=== PATIENT | female | born 1955 | race Caucasian/White ===

== ENCOUNTER 2018-04-02 09:00 | Inpatient (IN) | payer OTHER ==
[2018-04-22] MEDS ORDERED: FAMOTIDINE 20MG TABLET PO ONE (06:00)
[2018-04-22] MEDS ORDERED: CLINDAMYCIN 600MG/50ML PREMIX 600 MG/50 ML BAG IVPB ONE (06:00)
[2018-04-22] MEDS ORDERED: MECLIZINE 25 MG TABLET PO ONE (06:00)
[2018-04-22] MEDS ORDERED: CELECOXIB 100 MG CAPSULE PO ONE (06:00)
[2018-04-22] MEDS ORDERED: METOCLOPRAMIDE 10 MG TABLET PO ONE (06:00)
[2018-04-22] MEDS ORDERED: OXYCODONE HCL/APAP 5MG/325MG TABLET PO PRN (09:23)
[2018-04-22] MEDS ORDERED: METOCLOPRAMIDE HCL 10 MG/2 ML VIAL IVP PRN (09:30)
[2018-04-22] MEDS ORDERED: SENNOSIDES/DOCUSATE SODIUM UD CAPSULE PO PRN (09:30)
[2018-04-22] MEDS ORDERED: ONDANSETRON HCL IV 4 MG/2 ML VIAL IVP PRN (09:30)
[2018-04-22] MEDS ORDERED: HYDROMORPHONE HCL 2 MG/ML VIAL IV PRN (09:30)
[2018-04-22] MEDS ORDERED: DIPHENHYDRAMINE HCL 25 MG CAPSULE PO PRN (09:30)
[2018-04-22] MEDS ORDERED: NALOXONE 0.4 MG/1 ML VIAL IVP PRN (09:30)
[2018-04-22] MEDS ORDERED: AL HYDROX/MAG HYDROX 30ML UD PO PRN (09:30)
[2018-04-22] MEDS ORDERED: MAGNESIUM HYDROXIDE 30 ML UDC PO PRN (09:30)
[2018-04-22] MEDS ORDERED: ZOLPIDEM TARTRATE 5 MG TABLET PO PRN (09:30)
[2018-04-22] MEDS ORDERED: TRAMADOL HCL 50 MG TABLET PO PRN ×2 (09:30)
[2018-04-22] MEDS ORDERED: TRANEXAMIC ACID 1,000 MG in 0.9 % SODIUM CHLORIDE 100ML 100 ML IVPB ONE (11:00)
[2018-04-22] MEDS: RINGERS SOLUTION,LACTATED 1,000 ML IV SCH ×2 (11:14→17:37)
[2018-04-22] MEDS: OXYCODONE HCL/APAP 5MG/325MG TABLET PO PRN ×3 (13:36→21:16)
[2018-04-22] MEDS ORDERED: MIDAZOLAM HCL 2MG/2ML VIAL IV ONE (14:00)
[2018-04-22] MEDS ORDERED: LIDOCAINE 2% MDV (20MG/ML) 20ML VIAL IV ONE (14:00)
[2018-04-22] MEDS ORDERED: PHENYLEPHRINE HCL 10 MG/ML VIAL IVP ONE (14:00)
[2018-04-22] MEDS ORDERED: EPHEDRINE SULFATE 50 MG/ML ML IV ONE (14:00)
[2018-04-22] MEDS ORDERED: GLYCOPYRROLATE 0.2 MG/ML ML IV ONE (14:00)
[2018-04-22] MEDS ORDERED: PROPOFOL 10 MG/ML VIAL IV ONE (14:00)
--- NOTE | 2018-04-22 14:24 | Rehab Evaluation ---
Patient Information - Patient Information Diagnosis: OA R knee s/p R TKA Ordered Treatment: PT Evaluate and Treat Surgery: Yes (R TKA) Date of Surgery: 04/22/18 History: Detail (Pt reports progressive degeneration of R knee.) Past Med/Isha Hx Detail: Detail Past Medical/Surgical Hx: PAST MEDICAL/SURGICAL HISTORY Past Surgical History bilat knee scopes c section PMH - Respiratory Hx Respiratory Disorders No PMH - Cardiovascular Hx Cardiovascular Disorders Yes Hx Hypertension Yes: on meds fair control Exercise Tolerance Good PMH - Neuro Hx Neurological Disorders No PMH - GI Hx Gastrointestinal Disorders Yes Hx Gastroesophageal Reflux Yes: on occassion releived with tums PMH - Hx Genitourinary Disorders No Hx Age of Menopause 57 PMH - Endocrine Hx Endocrine Disorders No PMH - Musculoskeletal Hx Musculoskeletal Disorders Yes Hx Arthritis Yes: right knee PMH - Psych Hx Psychiatric Problems Yes Hx Anxiety Yes PMH - Hematology/Oncology Hx Hematology/Oncology No Disorders Premorbid Status: Detail (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 Independent with all ADLs.) Social History: Detail (Lives with spouse in 2 story home with 4 steps to enter and no hand rails. Pt has walk-in shower with grab bars, elevated toilet, and grab bars around toilet.) Precautions: [place], Fall - Time With Patient Total Time Spent With Patient (Min): 25 Subjective Information - Subjective Information Per Patient (Pt reports minor pain while laying in bed. Pt left supine in bed with needs met, call light within reach, and spouse attending at bedside.) Objective Data - Pain Pain Present: Yes Pain Intensity: 3 Pain Scale Used: Numeric (1 - 10) - Mental Status Patient Orientation: Oriented x3 - Visual Perception Appears within normal limits for therapeutic activities - ROM Not within normal limits (Decreased R knee flexion and extension.) - Strength/Tone Not within normal limits (Decreased R knee strength, grossly 3+/5.) - Coordination Appears within normal limits for therapeutic activities - Bed Mobility Independent (Pt performed sup<>sit transfer independently.) - Transfers Needs Assist (Pt performed sit<>stand transfer using RW and CGA for safety. Pt performed toilet transfer with grab bar on R, and CGA for steadying and safety. Pt given verbal cues for hand placement during transfers.) - Balance Balance Sitting: Good Balance Standing: Good - Sensation Intact - Gait Detail (Pt amb 275' with RW and CGA for safety. Pt amb with step through pattern , decreased stance time on RLE, decreased step length on R, and increased time. Pt required verbal cues and education for RW technique.) - Special Tests No Therapy Assessment - Therapy Assessment Detail (Pt's impairments are consistent with surgical procedure. Pt currently requires assistance with transfers and ambulation. Pt educated on proper RW and transfer techniques, and exercises to complete throughout the day.) Patient Education - Patient Education Teaching Topic: Equipment Use, Exercise/Activity, Precautions Response: Return Demonstration, Verbalize Understanding Teaching Method: Discussion Teaching Recipient: Patient Barriers To Learning: None Problem List - Problem List Physical Therapy Problem List: Detail (Impaired R LE ROM, strength, transfers and ambulation.) Goals - Goals Physical Therapy Goals: 1) Pt will perform sit<>stand transfers with least restrictive assistive device, independent. 2) Pt will ambulate 300' with least restrictive assistive device, independent. 3) Pt will ascend/descend 4 steps with 1 UE support and CGA for safety. Prognosis - Prognosis Good Plan - Plan Physical Therapy Plan: Pt will be seen by PT 1-2 times tomorrow to address current impairments to facilitate safe return home.
[2018-04-22] MEDS: CLINDAMYCIN 600MG/50ML PREMIX 600 MG/50 ML BAG IVPB SCH ×2 (14:28→23:14)
[2018-04-22] MEDS ORDERED: BUPIVACAINE 0.25% W/EPI MPF 30ML VIAL IVP ONE (14:54)
[2018-04-22] MEDS ORDERED: TRANEXAMIC ACID 1,000 MG/10 ML ML IV ONE (14:54)
[2018-04-22] MEDS ORDERED: 0.9 % SODIUM CHLORIDE 100ML BAG IV ONE (14:54)
[2018-04-22] MEDS ORDERED: ROPIVACAINE HCL (NAROPIN) /PF 5MG/ML 20ML VIAL IV ONE (14:56)
[2018-04-22] MEDS ORDERED: DEXAMETHASONE 4 MG/ML 1ML VIAL IVP ONE (14:56)
[2018-04-22] MEDS ORDERED: BUPIVACAINE LIPOSOME 266MG/20ML VIAL IV ONE (14:56)
[2018-04-22] MEDS: CARVEDILOL 12.5 MG TABLET PO SCH (21:16)
[2018-04-22] MEDS: ASPIRIN 325 MG TAB ENTERIC-COATED PO SCH (21:17)
[2018-04-23] MEDS: OXYCODONE HCL/APAP 5MG/325MG TABLET PO PRN ×4 (01:13→10:08)
[2018-04-23] MEDS: RINGERS SOLUTION,LACTATED 1,000 ML IV SCH (02:10)
[2018-04-23 06:34] LABS: HEMATOCRIT 38.9 % (35.0-47.0); HEMOGLOBIN 12.8 gm/dl (11.6-16.0); MEAN CELL VOLUME 89.8 fl (81-97); MEAN CORPUSCULAR HEMOGLOBIN 29.6 pg (27-33); MEAN CORPUSCULAR HGB CONC 32.9 g/dl (32-36); PLATELET COUNT 218 K/uL (130-400); RED BLOOD COUNT 4.33 M/uL (3.80-5.40); RED CELL DISTRIBUTION WIDTH 12.4 % (11.5-14.5)
[2018-04-23] MEDS: CLINDAMYCIN 600MG/50ML PREMIX 600 MG/50 ML BAG IVPB SCH (07:14)
[2018-04-23] MEDS ORDERED: ACETAMINOPHEN 325 MG TAB PO PRN (09:30)
--- NOTE | 2018-04-23 09:33 | Physical Therapy Tx Note ---
Physical Therapy Tx Note - Treatment Note Tolerated: Good Total Time Spent With Patient: 15 Physical Therapy Tx Note: Detail (The patient was in bed when PT arrived and rated her pain as level 3. The patient was independent with supine to and from sit transfer and sit to and from stand transfer. The patient ambulated 45 feet x1 WBAT on the R LE with front wheeled walker. The patient ambulated on stairs with folded walker and railing with supervision/CG for safety using proper technique. The patient's pain was increased following stair climbing and she declined to walk a distance. The patient has met all inpatient PT goals and is discharged from inpatient PT.) Physical Therapy Problem List: Detail (Impaired R LE ROM, strength, transfers and ambulation.) Physical Therapy Goals: 1) Pt will perform sit<>stand transfers with least restrictive assistive device, independent. (Goal met). 2) Pt will ambulate 300 ' with least restrictive assistive device, independent.( Goal met however patient did not ambulate 300feet . Patient is independent with ambulation). 3) Pt will ascend/descend 4 steps with 1 UE support and CGA for safety.(Goal Met) Physical Therapy Plan: Pt is independent with all mobility and has met her inpatient PT goals. Pt. is to continue with outpatient PT.
--- NOTE | 2018-04-23 09:44 | Operative Note ---
DATE OF SURGERY: 04/22/2018 Surgeon: Dionte Schwarz DO PREOPERATIVE DIAGNOSIS: Primary osteoarthritis of the right knee. POSTOPERATIVE DIAGNOSIS: Primary osteoarthritis of the right knee. OPERATION: Right total knee arthroplasty. DESCRIPTION OF PROCEDURE: This 63-year-old female was taken to the operating room and placed in the supine position on the operating room table. Spinal anesthesia was induced by the department of anesthesia. The right lower extremity was elevated. It was prepped with Hibiclens and draped in the usual sterile fashion. It was exsanguinated and the tourniquet inflated to 300 mmHg. All scrub personnel wore personal isolation suits. An anterior longitudinal midline incision was made followed by a medial parapatellar arthrotomy incision. An intracondylar drill hole was made for the intramedullary alignment jessica. The patient had very slight flexion contracture. Therefore, an additional 1 mm of bone was taken off the distal femur and a 5-degree valgus 10 mm cut was made in the distal femur. The wafer of bone was removed. Sizing jig was affixed and size 62.5 was seen to be the appropriate size. The 4-in-1 cutting block was then pinned in 3 degrees of external rotation. The appropriate cuts were made. The tibial cutting guide was then affixed and we referenced a 10 mm cut off the lateral tibial plateau. After the cutting block had been set in the appropriate position, it was secured into place and the tibia was cut at a 3-degree posterior slope. The wafer of bone was removed. Remnants of the menisci and osteophytes were removed from the posterior aspect of the joint. The wound was then irrigated to remove all debris from the joint. The tibia was sized to a 71 and the stem punch was used. The patella was then measured, cut, and restored to anatomic height with a 34 x 7.8 mm trial. The remainder of the trials were inserted and an 11 mm bearing was seen to be the appropriate size. The wound was copiously irrigated after all trial components were removed. Hemostasis obtained with the electrocautery. All the bony surfaces were dried. All components were cemented into place and excess cement removed after the insertion of each component. Initially we placed the 71 tibia baseplate followed by the insertion of the tibial bearing, femoral component, and finally the patella. Once the cement had hardened, the knee was again taken through range of motion and found to be stable throughout the full range of motion. Exparel was injected into the posterior, medial, and lateral corners of the joint and the remainder was then injected into the periosteum and joint capsule of the proximal tibial and distal femur after all final components had been inserted. A drain was placed through a separate stab incision, and the arthrotomy incision was closed with a #2 Vicryl. The subcutaneous tissue was closed with 0 Vicryl and the skin was stapled. Sterile dressings were applied with a Polar Care. The patient was taken to the recovery room in satisfactory condition. GROSS PATHOLOGY: This patient has severe grade 4 lesion in the medial compartment of the right knee. In addition, advanced degenerative changes at the patellofemoral joint were seen with grade 2 changes noted in the lateral compartment. Final components inserted were a [employer] Vanguard size 62.5 cruciate retaining femur, a 71 tibial baseplate, an 11 mm anterior stabilized D1 bearing, and a 34 x 7.8 mm patella was used. CC: Bertha Justin MD MTDD
[2018-04-23] MEDS ORDERED: LOSARTAN POTASSIUM 25 MG TABLET PO SCH (10:00)
[2018-04-23] MEDS ORDERED: CELECOXIB 100 MG CAPSULE PO SCH (10:00)
[2018-04-23] MEDS: CARVEDILOL 12.5 MG TABLET PO SCH (10:09)
[2018-04-23] MEDS: ASPIRIN 325 MG TAB ENTERIC-COATED PO SCH (10:12)
--- NOTE | 2018-04-23 10:21 | Rehab Evaluation ---
Patient Information - Patient Information Diagnosis: OA R knee s/p R TKA Ordered Treatment: OT Evaluate and Treat Status: Initial Evaluation Surgery: Yes (R TKA) Date of Surgery: 04/22/18 History: Detail (Pt reports progressive degeneration of R knee.) Past Medical/Surgical Hx: PAST MEDICAL/SURGICAL HISTORY Past Surgical History bilat knee scopes c section PMH - Respiratory Hx Respiratory Disorders No PMH - Cardiovascular Hx Cardiovascular Disorders Yes Hx Hypertension Yes: on meds fair control Exercise Tolerance Good PMH - Neuro Hx Neurological Disorders No PMH - GI Hx Gastrointestinal Disorders Yes Hx Gastroesophageal Reflux Yes: on occassion releived with tums PMH - Hx Genitourinary Disorders No Hx Age of Menopause 57 PMH - Endocrine Hx Endocrine Disorders No PMH - Musculoskeletal Hx Musculoskeletal Disorders Yes Hx Arthritis Yes: right knee PMH - Psych Hx Psychiatric Problems Yes Hx Anxiety Yes PMH - Hematology/Oncology Hx Hematology/Oncology No Disorders Premorbid Status: Detail (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 She has 4 steps and no handrailing at the entrance. She has a walk in shower with 3 grab bars and a seat and an elevated toilet with grab bar. She is normally responsible for laundry which is in the basement but her spouse will be assisting temporarily. Pt and spouse share home mgmt and spouse performs meal prep. She has a 2 wheeled walker and a couple canes.) Precautions: [place], Fall - Time With Patient Total Time Spent With Patient (Min): 35 Treatment Procedures: Detail (OT eval low complexity) Subjective Information - Subjective Information Per Patient Objective Data - Pain Pain Present: Yes (10/01) - Mental Status Patient Orientation: Oriented x3 - Visual Perception Appears within normal limits for therapeutic activities - ROM Within normal limits (Zac UE AROM WNL) - Strength/Tone Within normal limits (Zac UE strength WNL) - Coordination Appears within normal limits for therapeutic activities - Bed Mobility Independent (Ind with supine to sit and sit to supine.) - Transfers Independent (Ind with sit to stand) - Balance Balance Sitting: Good Balance Standing: Good - Sensation Intact - Gait Detail (Pt ambulating in room with 2 wheeled walker.) - ADL's/IADL's Detail (Pt educated and able to demonstrate learning of modified LE dressing techniques including doffing slipper socks and briefs and donning underwear, pants, socks and slip on shoes. Reviewed shower and kitchen safety and modifications, pt verbalized understanding.) Therapy Assessment - Therapy Assessment Detail (Pt is safe and Ind with modified LE dressing techniques.) Problem List - Problem List Physical Therapy Problem List: Detail (Impaired R LE ROM, strength, transfers and ambulation.) Occupational Therapy Problem List: Detail (No current IP OT problems identified. ) Goals - Goals Physical Therapy Goals: 1) Pt will perform sit<>stand transfers with least restrictive assistive device, independent. (Goal met). 2) Pt will ambulate 300 ' with least restrictive assistive device, independent.( Goal met however patient did not ambulate 300feet . Patient is independent with ambulation). 3) Pt will ascend/descend 4 steps with 1 UE support and CGA for safety.(Goal Met) Occupational Therapy Goals: No current IP OT goals identified. Prognosis - Prognosis Good Plan - Plan Physical Therapy Plan: Pt is independent with all mobility and has met her inpatient PT goals. Pt. is to continue with outpatient PT. Occupational Therapy Plan: No further IP OT recommended. Thank you for this referral.
== END 2018-04-23 13:17 | disposition home or self-care (01) | DRG 470 ==
LOC: MEDSURG 04-22 05:25
PROVIDERS: ADMIT Orthopaedic Surgery; ATTEND Orthopaedic Surgery
PROC: 0SRC069 Replacement of Right Knee Joint with Oxidized Zirconium on Polyethylene Synthetic Substitute, Cemented, Open Approach (ICD-10-PCS; principal; 2018-04-22 07:30)
DX: M17.11 Unilateral primary osteoarthritis, right knee (principal); I10 Essential (primary) hypertension; K21.9 Gastro-esophageal reflux disease without esophagitis; E66.9 Obesity, unspecified
CPT/HCPCS: 76942; 85025; 97530; J2370; J7120